=== PATIENT | female | born 1975 | race African-American/Black ===

== ENCOUNTER 2018-10-28 08:43 | Emergency (ER) | payer OTHER ==
[2018-10-28 08:51] VITALS: BMI 63.8
[2018-10-28] MEDS ORDERED: ACETAMINOPHEN 1000 MG/100 ML VIAL (NON FORMULARY) IVPB ONE (10:13)
[2018-10-28] MEDS ORDERED: SODIUM CHLORIDE 1,000 ML IV STA (10:13)
--- NOTE | 2018-10-28 10:13 | PDOC ---
History of Present Illness - General Chief Complaint: Pain, Acute Stated Complaint: ABD PAIN Time Seen by Provider: 10/28/18 08:55 History Source: Patient Exam Limitations: No Limitations Past History - Travel Traveled outside of the country in the last 30 days: No Close contact w/someone who was outside of country & ill: No - Past Medical History Allergies/Adverse Reactions: Allergies Allergy/AdvReac Type Severity Reaction Status Date / Time No Known Allergies Allergy Verified 10/28/18 08:45 Home Medications: Ambulatory Orders Losartan Potassium [Cozaar -] 50 mg PO DAILY #30 tablet 11/25/13 Omeprazole [Prilosec (RX)] 20 mg PO DAILY #30 capsule 11/25/13 Insulin (Novolog) [Novolog] 0 units SQ AC 10/28/18 Insulin Glargine,Hum.rec.anlog [Basaglar Kwikpen U-100] 30 unit SQ ASDIR Insulin Glargine,Hum.rec.anlog [Lantus Solostar PEN (NF)] 22 units SQ HS Insulin Lispro [Admelog Solostar] 10 unit SQ ASDIR 10/28/18 Oxycodone HCl/Acetaminophen [Percocet 5-325 mg Tablet] 1 tab PO Q6H #15 tablet MDD 4 10/28/18 Anemia: Yes Asthma: Yes COPD: No Diabetes: Yes HTN: Yes Hypercholesterolemia: Yes - Surgical History Abdominal Surgery: Yes (abd.abscess) Appendectomy: No Cardiac Surgery: No Cholecystectomy: No Lung Surgery: No Neurologic Surgery: No Orthopedic Surgery: No - Suicide/Smoking/Psychosocial Hx Smoking History: Never smoked Have you smoked in the past 12 months: Yes If you are a former smoker, when did you quit?: 1 month ago 'Breaking Loose' booklet given: 11/17/13 Hx Alcohol Use: Yes (social) Substance Use Type: None Hx Substance Use Treatment: No Review of Systems - Review of Systems Able to Perform ROS?: Yes Comments:: 10/28/18 09:37 CONSTITUTIONAL: Absent: fever, chills, diaphoresis, generalized weakness, malaise, loss of appetite HEENT: Absent: rhinorrhea, nasal congestion, throat pain, throat swelling, difficulty swallowing, mouth swelling, ear pain, eye pain, visual Changes CARDIOVASCULAR: Absent: chest pain, loss of consciousness, palpitations, irregular heart rate, peripheral edema RESPIRATORY: Absent: cough, shortness of breath, dyspnea with exertion, orthopnea, wheezing, stridor, hemoptysis GASTROINTESTINAL: Present: abdominal pain Absent: abdominal distension, nausea, vomiting, diarrhea , constipation, melena, hematochezia GENITOURINARY: Absent: dysuria, frequency, urgency, hesitancy, hematuria, flank pain, genital pain MUSCULOSKELETAL: Absent: myalgia, arthralgia, joint swelling SKIN: Present: wound on abdomen Absent: rash, itching, pallor HEMATOLOGIC/IMMUNOLOGIC: Absent: easy bleeding, easy bruising, lymphadenopathy, frequent infections ENDOCRINE: Absent: unexplained weight gain, unexplained weight loss, heat intolerance, cold intolerance NEUROLOGIC: Absent: headache, focal weakness or paresthesias, dizziness, unsteady gait, seizure, mental status changes, bladder or bowel incontinence PSYCHIATRIC: Absent: anxiety, depression, suicidal or homicidal ideation, hallucinations. Is the patient limited Chinese proficient: No *Physical Exam - Vital Signs Last Vital Signs Temp Pulse Resp BP Pulse Ox 97.7 F 86 18 130/83 99 10/28/18 08:50 10/28/18 08:50 10/28/18 08:50 10/28/18 08:50 10/28/18 08:50 - Physical Exam Comments: 10/28/18 09:38 GENERAL: Well developed, well nourished. Awake and alert. No acute distress. HEENT: Normocephalic, atraumatic. PERRLA, EOMI. No conjunctival pallor. Sclera are non- icteric. Moist mucous membranes. Oropharynx is clear. NECK: Supple. Full ROM. No JVD. Carotid pulses 2+ and symmetric, without bruits. No thyromegaly. No lymphadenopathy. CARDIOVASCULAR: Regular rate and rhythm. No murmurs, rubs, or gallops. Distal pulses are 2+ and symmetric. PULMONARY: No evidence of respiratory distress. Lungs clear to auscultation bilaterally. No wheezing, rales or rhonchi. ABDOMINAL: TTP of the suprapubic, LLQ region. Soft. Non-distended. No rebound or guarding. No organomegaly. Normoactive bowel sounds. MUSCULOSKELETAL Normal range of motion at all joints. No bony deformities or tenderness. No CVA tenderness. EXTREMITIES: No cyanosis. No clubbing. No edema. No calf tenderness. SKIN: 1cm round Stage 1 pressure ulcer under the abdominal fat pad on the L side. Warm and dry. Normal capillary refill. No rashes. No jaundice. NEUROLOGICAL: Alert, awake, appropriate. Cranial nerves 2-12 intact. No deficits to light touch and temperature in face, upper extremities and lower extremities. No motor deficits in the in face, upper extremities and lower extremities. Normoreflexic in the upper and lower extremities. Normal speech. Toes are down- going bilaterally. Gait is normal without ataxia. PSYCHIATRIC: Cooperative. Good eye contact. Appropriate mood and affect. ED Treatment Course - LABORATORY CBC & Chemistry Diagram: 10/28/18 09:50 10/28/18 09:50 - RADIOLOGY Radiology Studies Ordered: Category Date Time Status ABDOMEN & PELVIS CT WITH CONTR [CT] Stat CT Scan 10/28/18 09:21 Ordered Medical Decision Making - Medical Decision Making 10/28/18 11:30 The patient is a 43 y/o F with PMH of IDDM, HTN, HLD, HPV with cervical cancer in remission, asthma, migraines, poor wound healing, ectopic , presents to the ER for lower abdominal pain starting last night. She states that the pain woke her from sleep approximately 11pm. She states that the pain is in the lower middle of her abdomen over her old scar. She notes a wound over the area, but reports its getting smaller. She states she went to [facility] and they diagnosed her with back pain and gave her a shot. She states the shot made the pain worse so she presents to the ER for re-evaluation. Of note patient reports having a TVUS done on the in our hospital. PSHx: Ooferectomy/salpingectomy of the L ovary s/p ectopic Multiple laparotomies for surgical complications/abscesses A/P: abdominal pain Pt with LLQ pain/suprapubic pain on exam with 1cm round stage one pressure ulcer under abominal fat pad without evidence of abscess TVUS from 10/26 reviewed. Small cyst on R ovary with otherwise normal exam Basic labs, urine, CTAP ordered Ofirmev, morphine, IVF ordered Re-evaluate 10/28/18 14:29 CTAP with no acute abdominal findings. Multiple lung nodules noted. Pt made aware of incidental findings Pain relieved with Morphine; will send home with Rx for percocet. [employer] quired. Last percocet rx was in August of 2018. No leukocytosis. Electrolytes grossly normal. UA negative for infection Will need PCP follow up, possible surgical evaluation for adhesions? GI follow up needed as well DC home Pt feels comfortable with discharge planning and all questions were answered. I discussed the physical exam findings, ancillary test results and final diagnoses with the patient. I answered all of the patient's questions. The patient was satisfied with the care received and felt comfortable with the discharge plan and treatment plan. The Patient agrees to follow up with the primary care physician/specialist within 24-72 hours. Return precautions were given. *DC/Admit/Observation/Transfer Diagnosis at time of Disposition: Abdominal pain Qualifiers: Abdominal location: unspecified location Qualified Code(s): R10.9 - Unspecified abdominal pain - Discharge Dispostion Disposition: HOME Condition at time of disposition: Stable Decision to Admit order: No - Prescriptions Prescriptions: Oxycodone HCl/Acetaminophen [Percocet 5-325 mg Tablet] 1 tab PO Q6H #15 tablet MDD 4 - Referrals Referrals: Tj Rosenthal [Primary Care Provider] - Priyank Platt MD [Staff Physician] - - Patient Instructions Printed Discharge Instructions: DI for Abdominal Pain-Adult Additional Instructions: You were evaluated for your abdominal pain today Your CT scan did not show any abdominal pathology. There were incidental nodules found on your lungs. Please follow up with your primary care doctor. Please follow up with surgery for further evaluation of your abdominal pain Take the percocet as directed for pain. Do not drink or drive after taking this medication as it may make you drowsy Return to the ER for worsening abdominal pain, fever, chest pain, shortness of breath or if you have any changes in your symptoms - Post Discharge Activity
[2018-10-28] MEDS ORDERED: ACETAMINOPHEN INJECTION 100 ML IVPB ONE (10:15)
[2018-10-28 10:19] LABS: INR 1.08 (0.83-1.09); PROTHROMBIN TIME (PATIENT) 12.8 SEC (9.7-13.0)
[2018-10-28 10:27] LABS: BASO % 0.4 % (0-2.0); EOS % 1.9 % (0-4.5); HEMATOCRIT 35.8 % (32.4-45.2); HEMOGLOBIN 11.1 GM/dL (10.7-15.3); LYMPH % 25.7 % (8-40); MCH 26.7 pg (25.7-33.7); MCHC 31.1 g/dl (32.0-36.0); MEAN CELL VOLUME 85.9 fl (80-96); MEAN PLT VOLUME 8.7 fl (7.5-11.1); MONO % 7.3 % (3.8-10.2); NEUT % 64.7 % (42.8-82.8); PLATELET COUNT 228 K/MM3 (134-434); RBC 4.17 M/mm3 (3.60-5.2); RDW 14.2 % (11.6-15.6); WHITE BLOOD COUNT 7.5 K/mm3 (4.0-10.0)
[2018-10-28 10:31] LABS: ALBUMIN 3.2 g/dl (3.4-5.0); ALK PHOS 98 U/L (45-117); ANION GAP 5 MMOL/L (8-16); BILIRUBIN,TOTAL 0.4 mg/dL (0.2-1); BLOOD UREA NITROGEN 12 mg/dL (7-18); CALCIUM 8.4 mg/dL (8.5-10.1); CHLORIDE 106 mmol/L (98-107); CO2 27 mmol/L (21-32); CREATININE 0.7 mg/dL (0.55-1.3); GLUCOSE,RANDOM 161 mg/dL (74-106); POTASSIUM 3.9 mmol/L (3.5-5.1); SGOT/AST 15 U/L (15-37); SGPT/ALT 34 U/L (13-61); SODIUM 138 mmol/L (136-145); TOT PROT 6.8 g/dl (6.4-8.2)
[2018-10-28] MEDS ORDERED: morphine CARPU-JECT 4 MG/1 ML DISP.SYRIN IVPUSH ONE (10:58)
[2018-10-28] MEDS ORDERED: ONDANSETRON 4 MG/2 ML VIAL IVPUSH ONE (10:59)
[2018-10-28] MEDS ORDERED: morphine SULFATE 4 MG/ML VIAL ONE (11:01)
[2018-10-28 12:20] LABS: URINE APPEARANCE TURBID; URINE BILIRUBIN NEGATIVE (NEGATIVE); URINE COLOR YELLOW; URINE GLUCOSE (UA) 2+ (NEGATIVE); URINE KETONE TRACE (NEGATIVE); URINE LEUK ESTERASE NEGATIVE (NEGATIVE); URINE NITRITE NEGATIVE (NEGATIVE); URINE PROTEIN TRACE (NEGATIVE); URINE UROBILINOGEN 0.2 mg/dL (0.2-1.0)
[2018-10-28 12:22] LABS: HCG,QUALITATIVE URINE Negative
[2018-10-28 13:02] VITALS: BP 127/71; PULSE 72; TEMP 98.5
[2018-10-28] MEDS ORDERED: morphine CARPU-JECT 2 MG/1 ML DISP.SYRIN IVPUSH ONE ×2 (13:41→14:01)
[2018-10-28] MEDS ORDERED: MORPHINE SULFATE 2 MG/ML VIAL ONE ×2 (13:43→13:57)
--- NOTE | 2018-10-29 09:56 | EKG ---
Test Reason : Blood Pressure : / mmHG Vent. Rate : 081 BPM Atrial Rate : 081 BPM P-R Int : 148 ms QRS Dur : 080 ms QT Int : 388 ms P-R-T Axes : 027 019 017 degrees QTc Int : 450 ms NORMAL SINUS RHYTHM NORMAL ECG WHEN COMPARED WITH ECG OF 17-NOV-2013 08:40, T WAVE VARIATION Confirmed by TAIWO BOWDEN MD ([id number]) on 10/29/2018 9:56:20 AM Referred By: Confirmed By:TAIWO BOWDEN MD
== END 2018-10-28 14:29 | disposition home or self-care (01) ==
LOC: JER 08:43
PROC: 3E033NZ Introduction of Analgesics, Hypnotics, Sedatives into Peripheral Vein, Percutaneous Approach (ICD-10-PCS; principal; 2018-10-28)
PROC: 3E033GC Introduction of Other Therapeutic Substance into Peripheral Vein, Percutaneous Approach (ICD-10-PCS; 2018-10-28)
PROC: 3E0337Z Introduction of Electrolytic and Water Balance Substance into Peripheral Vein, Percutaneous Approach (ICD-10-PCS; 2018-10-28)
DX: R10.9 Unspecified abdominal pain (principal); E11.9 Type 2 diabetes mellitus without complications; I10 Essential (primary) hypertension; E78.5 Hyperlipidemia, unspecified; A63.0 Anogenital (venereal) warts; J45.909 Unspecified asthma, uncomplicated
CPT/HCPCS: 36415; 74177-TC; 80053; 81003; 83605; 84702; 84703; 85025; 85610; 87086; 93005; 93010; 96361; 96374; 96375; 96376; 99283-25; J0131; J7030